=== PATIENT | female | born 1985 | race Hispanic/Latino ===

== ENCOUNTER 2019-03-24 18:03 | Emergency (ER) | payer BC ==
[2019-03-24] MEDS ORDERED: Metoclopramide HCl 10 MG/2 ML VIAL ONE (18:44)
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
== END 2019-03-24 19:30 | disposition home or self-care (01) ==
LOC: SCSER 18:03
DX: S06.0X0A Concussion without loss of consciousness, initial encounter (principal); S01.81XA Laceration without foreign body of other part of head, initial encounter; W21.19XA Struck by other bat, racquet or club, initial encounter
CPT/HCPCS: 70450; 70486; 96365; J2765